=== PATIENT | male | born 1970 | race Caucasian/White ===

== ENCOUNTER 2017-10-20 15:59 | Emergency (ER) | payer BC, SELFPAY ==
[2017-10-20] MEDS ORDERED: Ibuprofen 800 MG TAB ONE (17:15)
--- NOTE | 2017-10-20 17:45 | RAD ---
LEFT ANKLE THREE VIEWS: INDICATIONS: Left ankle pain. COMPARISON: None. IMPRESSION: No acute fracture or subluxation is evident. Mild enthesopathic change is seen off the posterior chi caneus. POS: [facility]
== END 2017-10-20 17:24 | disposition home or self-care (01) ==
LOC: ERS 15:59
DX: S93.402A Sprain of unspecified ligament of left ankle, initial encounter (principal); G40.909 Epilepsy, unspecified, not intractable, without status epilepticus; F41.9 Anxiety disorder, unspecified; X58.XXXA Exposure to other specified factors, initial encounter